=== PATIENT | male | born 2000 | race Caucasian/White ===

== ENCOUNTER 2021-05-20 12:40 | Emergency (ER) | payer SELFPAY ==
[~2021-05-20] VITALS: Ht 182.9 cm; Wt 68.0 kg
[~2021-05-20 12:40] MED LIST: ALBU90I INH; AMOX50SU PO; AZIT200SU; BUDE.25; CODACEE120 PO
[2021-05-20] MEDS ORDERED: Amoxicillin875 MG PO (13:24)
== END 2021-05-20 13:30 | disposition home or self-care (01) ==
LOC: ER 12:40
DX: H66.92 Otitis media, unspecified, left ear (principal); F17.210 Nicotine dependence, cigarettes, uncomplicated

== ENCOUNTER 2021-05-24 07:26 | Inpatient (IN) | payer MEDICAID ==
[~2021-05-24] VITALS: Ht 182 cm; Wt 70.2 kg
[~2021-05-24 07:26] MED LIST changes: +Amoxicillin875 MG PO
[2021-05-24 08:23] LABS: BASOPHILS ABSOLUTE AUTO 0.16 K/mm3 (0.00-0.23); BASOPHILS PERCENT AUTO 1 % (0-2); EOSINOPHILS ABSOLUTE AUTO 0.91 K/mm3 (0.00-0.68); EOSINOPHILS PERCENT AUTO 7 % (0-6); Hematocrit 49.1 % (37.0-53.0); Hemoglobin 16.3 g/dL (13.5-17.5); IMMATURE GRAN ABSOLUTE AUTO 0.02 K/mm3 (0.00-0.10); IMMATURE GRAN PERCENT AUTO 0 % (0-1); LYMPHOCYTES PERCENT AUTO 17 % (21-46); MONOCYTES PERCENT AUTO 6 % (4-13); Mean Corpuscular HGB 28.4 pg (26.0-34.0); Mean Corpuscular HGB Conc 33.2 g/dL (31.5-36.5); Mean Corpuscular Volume 86 fL (80-100); NEUTROPHILS ABSOLUTE AUTO 8.62 K/mm3 (1.96-9.15); NEUTROPHILS PERCENT AUTO 68 % (41-73); Platelet Count 289 K/mm3 (150-400); RDW Coefficient Variation 12.5 % (11.7-14.2); RDW Standard Deviation 38.6 fL (35.1-46.3); Red Blood Cell Count 5.73 M/mm3 (4.30-5.90); White Blood Cell Count 12.61 K/mm3 (4.00-11.30)
[2021-05-24 08:45] LABS: Alanine Aminotransfer (ALT/SGP 21 U/L (12-78); Albumin, Blood 3.9 g/dL (3.4-5.0); Albumin/Globulin Ratio 1.1 (0.8-1.8); Alk Phos 73 U/L (50-136); Anion Gap 4 mmol/L (6-16); Aspartate Aminotrans (AST/SGOT 15 U/L (12-37); Bilirubin, Total 0.4 mg/dL (0.1-1.0); Blood Urea Nitrogen 13 mg/dL (8-24); Bun/Creatinine Ratio 14.8 (12.0-20.0); CO2, Blood 26 mmol/L (21-32); Calcium, Blood 9.2 mg/dL (8.5-10.1); Chloride, Blood 109 mmol/L (98-108); Creatinine, Blood 0.88 mg/dL (0.60-1.20); Globulin, Blood 3.7 g/dL (2.2-4.0); Glomerular Filtration Rate >60 (60-); Glucose, Blood 86 mg/dL (70-99); Sodium, Blood 139 mmol/L (136-145); Total Protein, Blood 7.6 g/dL (6.4-8.2)
[2021-05-24 09:27] LABS: Influenza A, PCR NEGATIVE (NEGATIVE); Influenza B, PCR NEGATIVE (NEGATIVE); Resp Syncytial Virus, PCR NEGATIVE (NEGATIVE); SARS-Cov-2 (COVID-19) PCR, MMC NEGATIVE (NEGATIVE)
--- NOTE | 2021-05-24 13:30 | NUR ---
PT ARRIVED TO THE MEDICAL FLOOR FROM THE ED VIA WHEELCHAIR. A/OX4, PLEASANT AND COOPERATIVE. THE PT WAS ORIENTED TO THE ROOM LAYOUT AND CALL SYSTEM. PT IS ON 2L/MIN O2 VIA NC AND APPEARS TO BE BREATHING EASILY. CALL LIGHT IN REACH. WILL CONTINUE TO MONITOR AND ASSESS FOR CHANGES
--- NOTE | 2021-05-24 16:36 | NUR ---
PT IS A/OX4, PLEASANT AND COOPERATIVE. THE PT IS UP IND IN HIS ROOM. PT IS ON 2L/MIN O2 VIA NC APPEARS TO BE BREATHING EASILY. THE PT DENIED PAIN AND NAUSEA. PT IS ON TELE. CALL LIGHT IN REACH, WILL CONTINUE TO MONITOR AND ASSESS FOR CHANGES
--- NOTE | 2021-05-25 04:48 | NUR ---
SHIFT SUMMARY NANCY: NANCY RECEIVED HIS PM MEDS AND WENT TO BED, VS WERE WNL. AT 0326 HE WENT ISABELLA IN HIS SLEEP HR 46 PER TELE REPORT BUT WENTT BACK UP QUICLY IN THE 60'S. THIS MORNING, HIS BIOX WAS BEEPING AND WHEN CHECKED ON, HIS OXYGEN HAD COME OUT OF HIS NOSE, SPO2 DECREASED TO 84, WHEN IT WAS PUT BACK IT TOOK ABOUT 2-3 MINS TO GET HIM BACK TO THE LOWER 90'S. HE REMAINED IN THE LOW TO MID 90'S ON THE 2L. WILL CONTINUE TO MONITOR.
[2021-05-25 05:18] LABS: BASOPHILS ABSOLUTE AUTO 0.04 K/mm3 (0.00-0.23); BASOPHILS PERCENT AUTO 0 % (0-2); EOSINOPHILS PERCENT AUTO 0 % (0-6); Hematocrit 47.8 % (37.0-53.0); Hemoglobin 16.1 g/dL (13.5-17.5); IMMATURE GRAN ABSOLUTE AUTO 0.07 K/mm3 (0.00-0.10); IMMATURE GRAN PERCENT AUTO 0 % (0-1); LYMPHOCYTES ABSOLUTE AUTO 1.49 K/mm3 (0.84-5.20); LYMPHOCYTES PERCENT AUTO 9 % (21-46); MONOCYTES ABSOLUTE AUTO 0.26 K/mm3 (0.16-1.47); MONOCYTES PERCENT AUTO 2 % (4-13); Mean Corpuscular HGB 28.5 pg (26.0-34.0); Mean Corpuscular HGB Conc 33.7 g/dL (31.5-36.5); Mean Corpuscular Volume 85 fL (80-100); Mean Platelet Volume 9.7 fL (9.1-12.4); NEUTROPHILS ABSOLUTE AUTO 15.07 K/mm3 (1.96-9.15); NEUTROPHILS PERCENT AUTO 89 % (41-73); Platelet Count 332 K/mm3 (150-400); RDW Coefficient Variation 12.4 % (11.7-14.2); RDW Standard Deviation 38.2 fL (35.1-46.3); Red Blood Cell Count 5.65 M/mm3 (4.30-5.90); White Blood Cell Count 16.93 K/mm3 (4.00-11.30)
[2021-05-25 05:57] LABS: Alanine Aminotransfer (ALT/SGP 24 U/L (12-78); Albumin, Blood 3.8 g/dL (3.4-5.0); Albumin/Globulin Ratio 1.1 (0.8-1.8); Alk Phos 78 U/L (50-136); Anion Gap 9 mmol/L (6-16); Aspartate Aminotrans (AST/SGOT 10 U/L (12-37); Bilirubin, Total 0.5 mg/dL (0.1-1.0); Blood Urea Nitrogen 15 mg/dL (8-24); Bun/Creatinine Ratio 17.8 (12.0-20.0); CO2, Blood 21 mmol/L (21-32); Calcium, Blood 9.5 mg/dL (8.5-10.1); Chloride, Blood 108 mmol/L (98-108); Creatinine, Blood 0.84 mg/dL (0.60-1.20); Globulin, Blood 3.6 g/dL (2.2-4.0); Glomerular Filtration Rate >60 (60-); Glucose, Blood 120 mg/dL (70-99); Potassium, Blood 4.6 mmol/L (3.5-5.5); Sodium, Blood 138 mmol/L (136-145); Total Protein, Blood 7.4 g/dL (6.4-8.2)
[2021-05-25 09:03] LABS: Influenza A, PCR NEGATIVE (NEGATIVE); Influenza B, PCR NEGATIVE (NEGATIVE); Resp Syncytial Virus, PCR NEGATIVE (NEGATIVE); SARS-Cov-2 (COVID-19) PCR, MMC NEGATIVE (NEGATIVE)
--- NOTE | 2021-05-25 17:25 | NUR ---
PATIENT IS ALERT AND ORIENTED AND COOPERATIVE WITH CARE. HIS OXYGEN REQUIREMENT INCREASED FROM 2.L O2 VIA NC TO 12 L O2 VIA OXYMIZER THIS MORNING, HE HAS BEEN TITRATED DOWN TO 8L O2 VIA OXYMIZER THROUGHOUT THE DAY. CONTINUOS PULSE OXIMETRY IS IN PLACE. INDEPENDENT IN IS ROOM. TESTED NEGATIVE FOR COVID AGAIN TODAY. WILL CONTINUE TO MONITOR
[2021-05-25 21:37] LABS: Adenovirus Not Detected (NOT DETECT); Bordetella pertussis Not Detected (NOT DETECT); Chlamydophila pneumoniae Not Detected (NOT DETECT); Coronavirus 229E Not Detected (NOT DETECT); Coronavirus HKU1 Not Detected (NOT DETECT); Coronavirus NL63 Not Detected (NOT DETECT); Coronavirus OC43 Not Detected (NOT DETECT); Human Metapneumovirus Not Detected (NOT DETECT); Human Rhinovirus/Enterovirus Not Detected (NOT DETECT); Influenza A/2009-H1 Not Detected (NOT DETECT); Influenza A/H1 Not Detected (NOT DETECT); Influenza A/H3 Not Detected (NOT DETECT); Influenza B Not Detected (NOT DETECT); Mycoplasma pneumoniae Not Detected (NOT DETECT); Parainfluenza Virus 1 Not Detected (NOT DETECT); Parainfluenza Virus 2 Not Detected (NOT DETECT); Parainfluenza Virus 3 Not Detected (NOT DETECT); Parainfluenza Virus 4 Not Detected (NOT DETECT); Respiratory Syncytial Virus Not Detected (NOT DETECT); SARS-Cov-2 (COVID-19), BioFire Not Detected (NOT DETECT)
--- NOTE | 2021-05-26 04:37 | NUR ---
SHIFT SUMMARY PT REPORTED BREATHING IMPROVED. DENIED ANY SOB. NO COUGH NOTED. LUNG SOUNDS DIMINISHED THROUGHOUT. OCCASSIONAL WHEEZE. RESOLVED AFTER BREATHING TX. PT TITRATED DOWN TO 5 L. O2 SATS 92-94%. PT HAS EPISODES OF BRADYCARDIA WHILE SLEEPING. HEART RATE DIPS DOWN INTO THE 40'S. UNCHANGED FROM PREVIOUS NIGHT. ASYMPTOMATIC. SR IN THE 60'S PER TELE WHILE AWAKE. RESPIRATORY PANEL ADDED TO PREVIOUS COLLECTED NASAL SWAB. RESULTS NEGATIVE. VITAL SIGNS STABLE. MOSTLY UNEVENTFUL NIGHT.
[2021-05-26 05:35] LABS: BASOPHILS ABSOLUTE AUTO 0.03 K/mm3 (0.00-0.23); BASOPHILS PERCENT AUTO 0 % (0-2); EOSINOPHILS PERCENT AUTO 0 % (0-6); Hematocrit 45.4 % (37.0-53.0); IMMATURE GRAN ABSOLUTE AUTO 0.14 K/mm3 (0.00-0.10); IMMATURE GRAN PERCENT AUTO 1 % (0-1); LYMPHOCYTES ABSOLUTE AUTO 1.31 K/mm3 (0.84-5.20); LYMPHOCYTES PERCENT AUTO 6 % (21-46); MONOCYTES ABSOLUTE AUTO 0.45 K/mm3 (0.16-1.47); MONOCYTES PERCENT AUTO 2 % (4-13); Mean Corpuscular HGB 28.5 pg (26.0-34.0); Mean Corpuscular Volume 86 fL (80-100); Mean Platelet Volume 9.6 fL (9.1-12.4); NEUTROPHILS ABSOLUTE AUTO 20.15 K/mm3 (1.96-9.15); NEUTROPHILS PERCENT AUTO 91 % (41-73); Platelet Count 305 K/mm3 (150-400); RDW Coefficient Variation 12.4 % (11.7-14.2); RDW Standard Deviation 39.1 fL (35.1-46.3); Red Blood Cell Count 5.26 M/mm3 (4.30-5.90); White Blood Cell Count 22.08 K/mm3 (4.00-11.30)
[2021-05-26] MEDS ORDERED: ACET325 PO (14:39)
[2021-05-26] MEDS ORDERED: AZIT250 PO (14:40)
[2021-05-26] MEDS ORDERED: PRED20 PO (14:42)
[2021-05-26] MEDS ORDERED: ALBU90OI INH (14:43)
--- NOTE | 2021-05-26 17:54 | NUR ---
DISCHARGE SUMMARY PATIENT DISCHARGED HOME. MEDICATIONS FAXED TO [facility] PER STATED PREFERRED PHARMACY. DISCHARGE PAPERWORK GONE OVER WITH PATIENT AND ALL QUESTIONS ANSWERED. NEW MEDICATIONS REVIEWED WITH PHARMACY. PATIENT TAKEN VIA WHEELCHAIR WITH ALL PERSONAL BELONGINGS TO PERSONAL VEHICLE.
== END 2021-05-26 16:16 | disposition home or self-care (01) | DRG 193 ==
LOC: ER 07:26 → MEDS 07:27
PROVIDERS: Internal Medicine; Physician Assistant; ADMIT Internal Medicine
PROC: 5A0935A Assistance with Respiratory Ventilation, Less than 24 Consecutive Hours, High Flow/Velocity Cannula (ICD-10-PCS; principal; 2021-05-25)
DX: J12.9 Viral pneumonia, unspecified (principal); J96.01 Acute respiratory failure with hypoxia; J45.909 Unspecified asthma, uncomplicated; Z20.822 Contact with and (suspected) exposure to COVID-19; F17.210 Nicotine dependence, cigarettes, uncomplicated
CPT/HCPCS: 0202U; 0241U; 36415; 71045; 80053; 83605; 83880; 85025; 85379; 87040; 90686; 94640; 94644; 94762; 96365; 96366; 96367; 96372; 96375; 96376; 99285-25; G0008; G0378; J0456; J0696; J1650; J2930; J7050; J7512

== ENCOUNTER → 2022-07-10 | Outpatient (CLI) | payer OTHER ==
[~2022-07-10] MED LIST changes: +ACET325 PO; +ALBU90OI INH; +AZIT250 PO; +CEPH500 PO; +Norco 5-325 Ta1 EACH PO; +PRED20 PO; +SULTRIDS PO
[2022-07-12 10:11] LABS: HBSAG SCREEN Negative (Negative); HCV ANTIBODY Non Reactive (Non Reactive)
[2022-07-13 01:08] LABS: HIV AB/P24 AG SCREEN Non Reactive (Non Reactive)
[2022-07-13 13:10] LABS: CHLAMYDIA BY NAA Negative (Negative); GONOCOCCUS BY NAA Negative (Negative); TRICH VAG BY NAA Negative (Negative)
== END ==
LOC: LAB 18:06 → LAB SHORT 18:06
PROVIDERS: Registered Nurse Community Health
DX: Z11.3 Encounter for screening for infections with a predominantly sexual mode of transmission (principal)
CPT/HCPCS: 86592; 86803; 87340; 87389; 87491; 87591; 87661